=== PATIENT | female | born 1975 | race Two or more races ===

== ENCOUNTER 2023-08-09 14:58 | Emergency (ER) | payer MEDICAID ==
[~2023-08-09] VITALS: Ht 162.6 cm; Wt 95.3 kg
[2023-08-09] MEDS ORDERED: FAMO20TA80 PO (16:38)
[2023-08-09] MEDS ORDERED: PRED20TA PO (16:38)
[2023-08-09] MEDS ORDERED: DIPH25CA83 PO (16:38)
[2023-08-09] MEDS ORDERED: ERYT3.5O9 LEFTEYE (16:38)
[2023-08-09] MEDS ORDERED: predniSONE 20 MG TABLET ONE (17:00)
[2023-08-09] MEDS ORDERED: diphenhydrAMINE HCL 25 MG CAPSULE ONE (17:00)
[2023-08-09] MEDS ORDERED: FAMOTIDINE (20 MG) 20 MG TABLET ONE (17:01)
[2023-08-09] MEDS: predniSONE 10 MG TABLET PO ONE (17:10)
[2023-08-09] MEDS: diphenhydrAMINE HCL 50 MG CAPSULE PO ONE (17:10)
[2023-08-09] MEDS: FAMOTIDINE (20 MG) 20 MG TABLET PO ONE (17:10)
[2023-08-09 17:12] VITALS: BP 122/68; TEMP 98.7; O2SAT 98
== END 2023-08-09 17:12 | disposition home or self-care (01) ==
LOC: ER 14:58
DX: H57.89 Other specified disorders of eye and adnexa (principal); Z60.2 Problems related to living alone
CPT/HCPCS: 99284; Q0163; J7512 ×2

== ENCOUNTER 2023-08-20 22:25 | Emergency (ER) | payer MEDICAID ==
[~2023-08-20] VITALS: Ht 167.6 cm; Wt 86.2 kg
[~2023-08-20 22:25] MED LIST: DIPH25CA83 PO; ERYT3.5O9 LEFTEYE; FAMO20TA80 PO; PRED20TA PO
[2023-08-20] MEDS ORDERED: ACETAMINOPHEN ES 500 MG TABLET ONE (22:41)
[2023-08-20] MEDS ORDERED: IBUPROFEN 400 MG TABLET ONE (22:41)
[2023-08-20] MEDS: IBUPROFEN 400 MG TABLET PO ONE (22:44)
[2023-08-20] MEDS: ACETAMINOPHEN ES 500 MG TABLET PO ONE (22:44)
[2023-08-20 23:04] VITALS: BP 134/86; TEMP 98.5
[2023-08-20] MEDS ORDERED: IBUP-1955 PO (23:38)
[2023-08-20] MEDS ORDERED: HYDR-4209 PO (23:38)
[2023-08-20] MEDS ORDERED: ACET-2605 PO (23:38)
[2023-08-21 00:55] VITALS: O2SAT 99
== END 2023-08-21 02:18 | disposition home or self-care (01) ==
LOC: ER 22:27
DX: S82.832A Other fracture of upper and lower end of left fibula, initial encounter for closed fracture (principal); S82.892A Other fracture of left lower leg, initial encounter for closed fracture; Z60.2 Problems related to living alone; W18.49XA Other slipping, tripping and stumbling without falling, initial encounter; Y93.89 Activity, other specified; Y92.832 Beach as the place of occurrence of the external cause; Y99.8 Other external cause status
CPT/HCPCS: 73610-TC; 73630-TC